=== PATIENT | male | born 1955 | race Caucasian/White ===

== ENCOUNTER 2018-06-18 09:05 | Day surgery (SDC) | payer OTHER ==
[2018-06-18] MEDS ORDERED: MIDAZOLAM 1 MG/ML 2 ML INJ (09:49)
[2018-06-18] MEDS ORDERED: LIDOCAINE 2% (SDV) 5 ML INJ (09:49)
[2018-06-18] MEDS ORDERED: PROPOFOL 40 ML (09:49)
== END 2018-06-18 14:31 | disposition home or self-care (01) ==
LOC: GIL 09:05
DX: Z12.11 Encounter for screening for malignant neoplasm of colon (principal); K63.5 Polyp of colon; K64.8 Other hemorrhoids; K57.30 Diverticulosis of large intestine without perforation or abscess without bleeding; K29.50 Unspecified chronic gastritis without bleeding; K21.9 Gastro-esophageal reflux disease without esophagitis; E78.5 Hyperlipidemia, unspecified; I10 Essential (primary) hypertension; I25.10 Atherosclerotic heart disease of native coronary artery without angina pectoris; Z86.73 Personal history of transient ischemic attack (TIA), and cerebral infarction without residual deficits
CPT/HCPCS: 43239; 88305; 88312

== ENCOUNTER 2018-10-21 07:26 | Day surgery (SDC) | payer OTHER ==
[2018-10-21] MEDS ORDERED: NA HYALURONATE/CHONDROITIN 0.5 ML SYG (08:12)
[2018-10-21] MEDS ORDERED: GENTAMICIN 80 MG INJ (08:12)
[2018-10-21] MEDS ORDERED: VANCOMYCIN 1 GM INJ (08:12)
[2018-10-21] MEDS ORDERED: TOBRAMYCIN/DEXAMETH 3.5 GM OPH OINT (08:12)
[2018-10-21] MEDS ORDERED: TETRACAINE 0.5% 4 ML OPH (08:12)
[2018-10-21] MEDS ORDERED: EPINEPHrine 1 MG INJ ×2 (08:12→09:39)
[2018-10-21] MEDS ORDERED: ACETAZOLAMIDE 250 MG TAB PO (08:30)
[2018-10-21] MEDS ORDERED: NEOMYC/POLYMYX/DEXAM 3.5GM OPH OINT OPER (08:30)
[2018-10-21] MEDS ORDERED: BALANCED SALT SOLN OPH IRRIG 500 ML, EPINEPHrine 0.1 MG, GENTAMICIN 4 MG, VANCOMYCIN 10 MG IRR (08:30)
[2018-10-21] MEDS ORDERED: APRACLONIDINE 1% 0.1 ML OPH OPER (08:30)
[2018-10-21] MEDS ORDERED: LIDOCAINE 4% (MPF) 5 ML INJ INJ (08:30)
[2018-10-21] MEDS ORDERED: TOBRAMYCIN 0.3% 5 ML OPH OPER (08:30)
[2018-10-21] MEDS: ACETAMINOPHEN 500 MG TAB PO (08:35)
[2018-10-21] MEDS: TETRACAINE 0.5% 4 ML OPH OPER (08:36)
[2018-10-21] MEDS: LIDOCAINE 2% (SDV) 5 ML INJ (08:36)
[2018-10-21] MEDS: PHENYLephrine 2.5% 15 ML OPH OPER (08:36)
[2018-10-21] MEDS: PREDNISOLONE ACET 1% 5 ML OPH OPER (08:37)
[2018-10-21] MEDS: TROPICAMIDE 1% 3 ML OPH OPER (08:45)
[2018-10-21] MEDS ORDERED: hydrALAzine 20 MG INJ IV (09:00)
[2018-10-21] MEDS ORDERED: DIPHENHYDRAMINE 50 MG INJ IV (09:00)
[2018-10-21] MEDS ORDERED: ONDANSETRON 4 MG INJ IV (09:00)
[2018-10-21] MEDS ORDERED: PROCHLORPERAZINE 10 MG INJ IV (09:00)
[2018-10-21] MEDS ORDERED: FENTAnyl 50 MCG/ML VIAL IV (09:00)
[2018-10-21] MEDS ORDERED: MEPERIDINE 25 MG INJ IV (09:00)
[2018-10-21] MEDS ORDERED: HYDROmorphONE 1 MG/5 ML IV SYRINGE IV ×3 (09:00)
[2018-10-21] MEDS ORDERED: LABETALOL HCL 20MG INJ IV (09:00)
[2018-10-21] MEDS ORDERED: TRYPAN BLUE 0.5 ML SYG IO (09:12)
[2018-10-21] MEDS ORDERED: MIDAZOLAM 1 MG/ML 2 ML INJ (09:22)
[2018-10-21] MEDS ORDERED: FENTAnyl 50 MCG/ML VIAL (09:24)
== END 2018-10-21 11:48 | disposition home or self-care (01) ==
LOC: SDS 07:26
DX: H26.8 Other specified cataract (principal); Z86.73 Personal history of transient ischemic attack (TIA), and cerebral infarction without residual deficits; E03.9 Hypothyroidism, unspecified; I10 Essential (primary) hypertension; I25.2 Old myocardial infarction
CPT/HCPCS: 66984